=== PATIENT | female | born 1945 | race Caucasian/White ===

== ENCOUNTER 2016-08-05 09:33 | Emergency (ER) | payer MEDICARE, OTHER ==
[2014-08-18 10:07] VITALS: BMI 21.8
[~2016-08-05 09:33] MED LIST: BRILINTA90 MG PO; CATAPRES0.1 MG PO; DECADRON4 MG PO; DILAUDID8 MG OR; DILAUDID8 MG PO; IMDUR30 MG PO; LEVAQUIN750 MG PO; LIVALO1 MG PO; LOPRESSOR25 MG PO; LOPRESSOR50 MG PO; NORCO 5/325 TAB1 TA1 PO; NORVASC10 MG PO; PERCOCET 10/3251 TA1 PO; PHENERGAN25 M1 PO; PROTONIX40 MG PO; ROBAXIN-750750 MG PO; VITAMIN B-121000 MC3 PO
== END 2016-08-05 14:50 | disposition home or self-care (01) ==
LOC: D.ER 09:33
DX: G89.29 Other chronic pain (principal); M54.16 Radiculopathy, lumbar region; I25.810 Atherosclerosis of coronary artery bypass graft(s) without angina pectoris; J44.9 Chronic obstructive pulmonary disease, unspecified; F32.9 Major depressive disorder, single episode, unspecified; K21.9 Gastro-esophageal reflux disease without esophagitis; I73.9 Peripheral vascular disease, unspecified

== ENCOUNTER → 2016-09-26 10:26 | Outpatient (CLI) | payer MEDICARE, OTHER ==
[2014-08-18 10:07] VITALS: BMI 21.8
== END | disposition home or self-care (01) ==
LOC: D.CT 10:26
DX: I73.9 Peripheral vascular disease, unspecified (principal)

== ENCOUNTER → 2016-10-14 09:08 | Outpatient (CLI) | payer MEDICARE, OTHER ==
[2014-08-18 10:07] VITALS: BMI 21.8
[2016-10-14 10:49] LABS: ALBUMIN 3.7 g/dL (3.4-5.0); ALKALINE PHOSPHATASE 122 U/L (46-116); ALT (SGPT) 20 U/L (10-68); BILIRUBIN - TOTAL 0.34 mg/dL (0.2-1.3); CALC OSMOLALITY 282 mosm/kg (275-300); CALCIUM 8.8 mg/dL (8.5-10.1); CARBON DIOXIDE 31.7 mmol/L (21.0-32.0); CHLORIDE - SERUM 103 mmol/L (98-107); CREATININE - SERUM 0.7 mg/dL (0.6-1.3); GLUCOSE 108 mg/dL (74-106); POTASSIUM - SERUM 4.7 mmol/L (3.5-5.1); PROTEIN - SERUM 7.1 g/dL (6.4-8.2); SODIUM 142 mmol/L (136-145); UREA NITROGEN 10 mg/dL (7-18); eGFR NON AFRICAN AMERICAN 88 mL/min (90-120)
[2016-10-15 09:12] LABS: HEPATITIS C ANTIBODY <0.1 (0.0-0.9)
== END | disposition home or self-care (01) ==
LOC: D.LAB 10-06 08:30 → D.MRI 10-06 10:00 → D.LAB 09:08
PROVIDERS: Family Medicine
DX: R16.0 Hepatomegaly, not elsewhere classified (principal)

== ENCOUNTER 2017-06-28 09:24 | Emergency (ER) | payer MEDICARE, OTHER ==
[2014-08-18 10:07] VITALS: BMI 21.8
== END 2017-06-28 10:56 | disposition home or self-care (01) ==
LOC: D.ER 09:24
DX: M79.672 Pain in left foot (principal); S91.302A Unspecified open wound, left foot, initial encounter; X58.XXXA Exposure to other specified factors, initial encounter; Y93.89 Activity, other specified; Y92.89 Other specified places as the place of occurrence of the external cause; J44.9 Chronic obstructive pulmonary disease, unspecified; K21.9 Gastro-esophageal reflux disease without esophagitis; I25.10 Atherosclerotic heart disease of native coronary artery without angina pectoris

== ENCOUNTER → 2017-06-29 08:34 | Outpatient (CLI) | payer MEDICARE, OTHER ==
[2014-08-18 10:07] VITALS: BMI 21.8
[~2017-06-29 08:34] MED LIST changes: +ASPIRIN81 MG PO; +ELIQUIS2.5 MG PO; +HYDROCODONE-APA1 TAB PO; +K-TAB10 MEQ PO; +PLAVIX75 MG PO
== END | disposition home or self-care (01) ==
LOC: D.CT 06-28 08:47
DX: I73.9 Peripheral vascular disease, unspecified (principal); I70.219 Atherosclerosis of native arteries of extremities with intermittent claudication, unspecified extremity

== ENCOUNTER 2017-07-04 16:23 | Inpatient (IN) | payer MEDICARE, OTHER ==
[~2017-07-04] VITALS: Ht 149.9 cm; Wt 42.5 kg
--- NOTE | ~2017-07-04 | HEMODYNAMI ---
PATIENT:IRINA CARRERA MEDICAL RECORD: [id number] : 45 LOCATION:[place] [address] ADMISSION DATE: 07/04/17 Generatedon:07/07/201716:19 Patient name: IRINA CARRERA Patient #: [id number] SSN: : 1945 Date of study: 07/07/2017 Page: Of Hemodynamic Procedure Report Patient Data Patient Demographics Procedure consent was obtained First Name: IRINA Gender: Female Last Name: DEBI : 1945 Patient #: [id number] Age: 71 year(s) Race: Additional ID: [id number] Contact details [address]: [address] [place] [address] State: [place] City: [place] Zip code: [address] Past Medical History Allergies Allergen Reaction Date Comments Reported IV contrast dye 08/15/2014 NSAIDs 08/15/2014 Penicillins 08/15/2014 Morphine 08/15/2014 Other allergy 08/15/2014 PREDNISONE, ALPRAZOLAM, VALIUM, NSAIDS, CELEXA, CYMBALTA, NEVROTIN, ZOFRAN Admission Admission Data Admission Date: 07/04/2017 Admission Time: 16:23 Room #: [facility] Procedure Procedure Types Cath Procedure Peripheral Cath Diagnostic Procedure Miscellaneous Procedure Description Procedure Date Procedure Date: 07/07/2017 Procedure Start Time: 14:33 Procedure Staff Name Function Mat Ziegler RT Monitor Atif Markham MD Additional personnel Robel Chaney MD Performing Physician Valorie Rose RT Scrub Juana Ramirez RN Nurse Angie Lovelace RN Nurse Procedure Data Cath Procedure Fluoroscopy Diagnostic fluoroscopy Total fluoroscopy Time: 3.2 time: 3.2 min min Diagnostic fluoroscopy Total fluoroscopy dose: 110 dose: 110 mGy mGy Contrast Material Contrast Material Type Amount (ml) Isovue 300 78 Procedure Medications Medication Administration Route Dosage Solumedrol I.V. 125 mg Benadryl I.V. 50 mg Heparin Flush Bag added to field 3 (1000units/500ml NS) Lidocaine 1% added to field 20 Oxygen etCO2 Nasal cannula 4 l/min Heparin Bolus I.V. 5000 units Nitroglycerin IC/IA I.A. 200 Hemodynamics Rest Heart Rate: 69 (bpm) Snapshots Pre Cath Intra NCS Post Cath Vital Signs Time Heart Resp SPO2 etCO2 NIBP (mmHg) Rhythm Pain Sedation Rate (ipm) (%) (mmHg) Status Level (bpm) 14:23:31 80 2 31.8 Measuring NSR 0 (11) 10(A) , No pain 14:23:53 86 5 91 21.9 192/108(121) NSR 0 (11) 10(A) , No pain 14:28:20 80 15 100 25 192/101(149) NSR 0 (11) 10(A) , No pain 14:32:40 72 13 100 3 187/91(137) NSR 0 (11) 9(A) , No pain 14:37:06 64 16 100 10.6 174/81(136) NSR 0 (11) 9(A) , No pain 14:41:26 62 16 100 9.8 176/82(140) NSR 0 (11) 8(A) , No pain 14:45:48 62 16 100 14.3 182/79(138) NSR 0 (11) 8(A) , No pain 14:50:12 61 15 100 9.8 174/81(137) NSR 0 (11) 8(A) , No pain 14:54:35 61 15 100 12.1 171/78(132) NSR 0 (11) 8(A) , No pain 14:58:57 61 13 100 11.3 155/72(124) NSR 0 (11) 8(A) , No pain 15:03:15 62 15 100 11.3 135/69(106) NSR 0 (11) 8(A) , No pain 15:07:25 61 13 100 15.1 140/71(113) NSR 0 (11) 8(A) , No pain 15:11:37 61 13 100 15.9 133/69(105) NSR 0 (11) 8(A) , No pain 15:15:47 58 14 100 18.1 134/68(106) NSR 0 (11) 8(A) , No pain 15:19:59 57 15 100 15.9 134/64(104) NSR 0 (11) 8(A) , No pain 15:24:08 57 13 100 18.1 135/69(108) NSR 0 (11) 8(A) , No pain 15:28:29 63 12 100 16.6 74/43(53) NSR 0 (11) 8(A) , No pain 15:33:11 75 13 100 8.3 48/31(39) NSR 0 (11) 8(A) , No pain 15:34:27 70 20 100 19.6 56/32(41) NSR 0 (11) 8(A) , No pain 15:35:25 72 11 100 22.7 49/33(40) NSR 0 (11) 8(A) , No pain 15:36:28 74 15 100 13.6 67/42(53) NSR 0 (11) 8(A) , No pain 15:38:45 67 23 100 8.3 106/63(84) NSR 0 (11) 8(A) , No pain 15:41:58 63 14 100 13.6 69/42(57) NSR 0 (11) 8(A) , No pain 15:44:00 70 14 100 13.6 68/46(57) NSR 0 (11) 8(A) , No pain 15:45:12 73 100 0 85/54(67) NSR 0 (11) 8(A) , No pain 15:48:16 81 24 100 11.3 83/50(71) NSR 0 (11) 8(A) , No pain 15:52:18 89 17 100 0 83/52(62) NSR 0 (11) 8(A) , No pain 15:56:16 91 14 100 21.2 102/55(83) NSR 0 (11) 8(A) , No pain 16:00:18 95 17 100 16.6 80/59(73) NSR 0 (11) 8(A) , No pain 16:01:58 96 15 100 0 66/42(52) NSR 0 (11) 8(A) , No pain 16:05:52 97 21 100 0 79/53(71) NSR 0 (11) 8(A) , No pain 16:09:51 107 16 0 101/50(66) NSR 0 (11) 8(A) , No pain 16:14:46 0 Out of range NSR 0 (11) 8(A) , No pain 16:18:45 0 No Cuff NSR 0 (11) 8(A) , No pain Medications Time Medication Route Dose Verified Delivered Reason Notes Effec tiveness by by 14:36:12 Solumedrol I.V. 125 Robel Adams per drug mg Radu Chaney RN protocol 14:36:27 Benadryl I.V. 50 mg Robel Ramirezine per drug Radu Chaney RN protocol 14:37:59 Heparin Flush added 3 Robel Robel Per Bag to BAGS Shiv Chaney MD protocol (1000units/500ml field NS) 14:38:13 Lidocaine 1% added 20ml Robel Roble Per to vial Shiv Chaney MD protocol field 14:38:38 Oxygen etCO2 4 Robel Angie Per Nasal l/min Radu Chaney RN protocol cannula 14:53:21 Heparin Bolus I.V. 5000 Robel Juana units James Chaney RN, MD 14:58:46 Nitroglycerin I.A. 200 Robel Robel IC/IA MCG Shiv Chaney MD MD Procedure Log Time Note 13:55:14 Atif Markham MD present and monitoring patient for TIVA. 13:55:58 Mat Ziegler RT (R) (CV) sent for patient. Start room use. 13:56:13 Time tracking: Regular hours (M-F 7:00 - 5:00) 13:56:19 Plan of Care:Hemodynamics will remain stable., Cardiac rhythm will remain stable., Comfort level will be maintained., Respiratory function will remain adequate., Patient/ family verbilizes understanding of procedure., Procedure tolerated without complication., Recovers from procedure without complications.. 13:56:25 Patient received from CVICU to IR Alert and oriented. Tansferred to table in Supine position. 13:56:26 Correct patient and procedure confirmed by team. 13:56:34 Warm blankets applied, and lucho hugger turned on for patient comfort. 13:56:38 Signed procedure consent form obtained from patient. 13:56:39 Full Disclosure recording started 13:56:42 - 13:56:47 H&P Date Dictated: 07/07/2017 Within 30 days and on chart.. 13:56:48 Pre-procedure instructions explained to patient. 13:56:49 Pre-op teaching completed and patient verbalized understanding. 13:56:51 - 13:57:11 SEE ANESTHESIA NOTE FOR PREPROCEDURE TIVA 13:57:12 - 13:57:16 Use device set IR Diagnostic 13:57:23 ACIST Manifold (11439) opened to sterile field. 13:57:23 ACIST Hand Control (32647) opened to sterile field. 13:57:23 ACIST Syringe (72561) opened to sterile field. 13:57:24 Sterile Angiographic Pack opened to sterile field. 13:57:24 Bag Decanter (2002S) opened to sterile field. 13:57:25 Tegaderm 4 x 4 (1626W) opened to sterile field. 14:15:46 Alarms reviewed by R. N. 14:15:47 Sharps counted by scrub and verified by R.N. 14:16:10 Left groin area was prepped with chlora-prep and draped in sterile fashion 14:21:41 Vital chart was started 14:26:27 Baseline sample Acquired. 14:31:47 Physician arrived 14:31:48 Final Timeout: patient, procedure, and site verified with staff and physician. All members of the team are in agreement. 14:31:48 --------ALL STOP TIME OUT------ 14:31:51 Left groin site verified by team. 14:31:57 Sedation plan: TIVA Medication:Propofol 14:33:35 Procedure started. 14:33:47 Local anesthetic to left femerol artery with Lidocaine 1% by Robel Chaney MD.INITIAL ACCESS ONLY 14:36:12 Solumedrol 125 mg I.V. was administered by Angie Lovelace RN; per kamilah g protocol; 14:36:17 Tompkins 260 wire (L37747) opened to sterile field. 14:36:27 Benadryl 50 mg I.V. was administered by Angie Lovelace RN; per drug protocol; 14:37:59 Heparin Flush Bag (1000units/500ml NS) 3 BAGS added to field was administered by Robel Chaney MD; Per protocol; 14:38:13 Lidocaine 1% 20ml vial added to field was administered by Robel Chaney MD; Per protocol; 14:38:38 Oxygen 4 l/min etCO2 Nasal cannula was administered by Angie Lovelace RN; Per protocol; 14:52:16 INFLATOR Merit BasixCompak (TR7846) opened to sterile field. 14:52:56 Inflate balloon Inflation number: 1 A CHOCOLATE 3.0 x 120 x 150 balloon ([id number]) was prepped and advanced across the Undefined1, then inflated 14:53:21 Heparin Bolus 5000 units I.V. was administered by Juana Ramirez RN; ; 14:53:27 CHOICE PT Extra Support J 300cm guide wire ([id number]) opened to steril e field. 14:53:29 CXI Catheter 90cm (S98814) opened to sterile field. 14:58:46 Nitroglycerin IC/IA 200 MCG I.A. was administered by Robel Chaney MD; ; 15:15:01 EXOSEAL 5Fr (EX500) opened to sterile field. 15:18:57 TOMPKINS 80cm wire (M02929) opened to sterile field. 15:23:07 Procedure ended.(Physican Out) 15:23:50 Fluoroscopy time 03.20 minutes. 15:24:01 Fluoroscopy dose: 110 mGy 15:24:01 Flurop Dose total: 110 15:24:09 Contrast amount:Isovue 300 78ml. 15:24:12 Procedure and supply charges have been captured, reviewed, submitted an d are correct. 15:27:18 Report given to CVICU. 15:29:58 Post Procedure Pulses reassessed and unchanged 15:30:53 Vital chart was stopped 15:30:56 Full Disclosure recording stopped 15:50:31 Vital chart was started 16:19:12 Vital chart was stopped Intervention Summary Intervention Notes Time ActionType Lesion and Equipment Used Action# Pressure Duration Attributes 14:52:56 Inflate Undefined1 CHOCOLATE 3.0 x 1 0 00:00 balloon 120 x 150 balloon ([id number]) Device Usage Item Name Manufacture Quantity Catalog Number Hospital Part Current Minimal Lot# / Charge Number Stock Stock Serial# Code ACIST Syringe Acist 1 80381 375298 [id number] [id number] 20 (79861) [employer] ACIST Hand Acist 1 62688 148593 529121 185252 5 Control (67103) [employer] ACIST Manifold Acist 1 75941 796604 964400 936821 5 (70739) [employer] Bag Decanter Microtek 1 2002S 854696 05972 009474 5 (2002S) Medical Inc. Sterile Cardinal 1 [id number] 091293 423292 5 Angiographic Pack Health Tegaderm 4 x 4 3M 1 1626W 567125 345733 217439 5 (1626W) Tompkins 260 wire [employer] 1 M07389 443248 076922 612151 5 (N11188) INFLATOR Merit Merit 1 DD8568 591522 693969 944219 15 [facility] (MA5425) CHOCOLATE 3.0 x Cardinal 1 [id number] 396755 227532 959376 5 120 x 150 balloon Health O ([id number]) TW CHOICE PT Extra Ponce 1 [id number] 239183 850732 620916 5 Support J 300cm Scientific guide wire ([id number]) CXI Catheter 90cm [employer] 1 A35879 018487 131324 583478 5 (J88956) EXOSEAL 5Fr Cardinal 1 EX500 307283 995876 581422 10 [id number] (EX500) Health TOMPKINS 80cm wire [employer] 1 L98790 853741 175103 5 [id number] ([id number]) Signature Audit [place] Stage Time Signature Unsigned Intra-Procedure 07/07/2017 Mat Ziegler RT 3:30:50 PM Barbraield RT (R) (CV) 07/07/2017 (R) (CV) 3:31:56 PM Intra-Procedure 07/07/2017 Mat 4:19:09 PM Barbraield RT (R) (CV) Signatures Monitor : Mat Signature : Karlie RT Date : Time : [place] [address] [place] [address]
--- NOTE | ~2017-07-04 | HP ---
PATIENT: IRINA CARRERA MEDICAL RECORD: [id number] ACCOUNT: [id number] LOCATION:[address] : 45 ADMISSION DATE: 07/04/17 HISTORY AND PHYSICAL EXAMINATION IRINA Morales (71yo, F) ID# [id number]. Date/Time07/04/2017 01:39PBLQL12[facility]_[place] [facility] ClinicProviPutnam General HospitalEZIO ORTIZ MDInsuranceMed Primary: [place] Insurance # : [id number] Referring Provider Name : KALPANA INMAN Employer Name : RETIRED Med Secondary: GEHA (PPO) Insurance # : [id number] Policy/Group # : [id number] Employer Name : RETIRED Prescription: CMX - Member is eligible. Chief Complaint Followup: Peripheral vascular disease s/p L groin exploration; thrombectomy of L limb of ABF; bilateral chest tubes 08/18/14 now new referral for PAD, CTA 06/29/17 at [facility] Patient's Care Team Referring Provider (): KALPANA INMAN: [address], [place] [address], , Referring Provider: DENIS PAINTING MD: [address] [place] [id number], , Primary Care Provider: LIONEL PORRAS: [address] [place] [address], , Personnel Adviser: MACHO DUEÑAS MD Patient's Pharmacies [facility] (ERX): [address] [facility] [address], , Vitals BP:126/66 sitting L arm 07/04/2017 02:00 pmBP Cuff Size:adult 07/04/2017 02:00 pmHR:88,reg 07/04/2017 02:00 pmHt:4 ft 11 in 07/04/2017 02:00 pmNotes:had ingrown toenail about a month or six weeks ago, then developed staph in her toe wound. Was in [facility] five days for this, and then went to wound clinic, who sent her to Dr Dueñas.07/04/2017 02:02 pmAllergies Reviewed Allergies CELEBREX: GI bleedCELEXACYMBALTAIODINATED CONTRAST- ORAL AND IV DYE: ItchingMORPHINE: ItchingNEURONTINNSAIDS (NON-STEROIDAL ANTI-INFLAMMATORY DRUG)PENICILLINS: ItchingPRAVASTATIN: Myalgias (muscle pain)PREDNISOLONE: SeizureVALIUMXANAX: NauseaZOFRAN: VomitingMedications Reviewed Medications acetaminophen 300 mg-codeine 30 mg mdiuiy87/27/18 filledCaremarkamitriptyline 25 mg /16/18 filledCaremarkamitriptyline 50 mg pqolep27/06/18 filledCaremarkamLODIPine 10 mg yuomfp87/06/17 filledCaremarkAspir-81 DAILY07/03/17 enteredErika Watkinsatorvastatin 40 mg zycrsi24/02/13 filledMEDCOclindamycin HCl 150 mg /25/18 filledCaremarkclindamycin HCl 300 mg srybbko97/13/18 filledCaremarkcloNIDine HCl 0.1 mg tablet BID08/13/14 filledCaremarkdiphenoxylate-atropine 2.5 mg-0.025 mg /23/17 filledCaremarkgabapentin 300 mg xwlpkyf89/07/17 filledCaremarkHYDROcodone 5 mg-acetaminophen 325 mg /17/17 filledCaremarkHYDROcodone 7.5 mg-acetaminophen 325 mg zredzl59/07/18 filledCaremarkmeperidine 50 mg ftpecv84/13/18 filledCaremarknitroglycerin 0.[address] 1 tablet(s) by sublingual route. HISTORY AND PHYSICAL [id number] IRINA CARRERA Internal Note: PRN07/03/17 enteredErika WatkinsoxyCODONE-acetaminophen 7.5 mg-325 mg fqcyox92/23/17 filledCaremarkOxyCONTIN 10 mg tablet,crush resistant,extended jnolzoh52/10/17 filledCaremarkOxyCONTIN 15 mg tablet,crush resistant,extended gromcbv11/08/17 filledCaremarkOxyCONTIN 20 mg tablet,crush resistant,extended release TK 1 T PO Q 12 HOURS05/19/17 filledCaremarkPlavix 75 mg tablet Take 1 tablet(s) every day by oral route.07/03/17 enteredErika WatkinsRobaxin-750 750 mg tablet Take 1 tablet(s) 4 times a day by oral route.07/03/17 enteredErika WatkinstraMADol 50 mg qyulip41/22/18 filledCaremarkProblems Reviewed Problems Limb pain at rest due to atherosclerosis of [place] artery - Onset: 07/04/2017 History of depression Gastroesophageal reflux disease Chest pain Peripheral vascular disease Aneurysm - right groin Coronary atherosclerosis Essential hypertension Family History Reviewed Family History Mother- Coronary arteriosclerosisFather- Coronary arteriosclerosisSocial History Reviewed Social History Cardiology Family history of heart disease?: Y Smoking Status: Former smoker (Notes: QUIT 1 MONTH AGO) High Cholesterol: Y High blood pressure: Y Diabetes: N Surgical History Reviewed Surgical History Laparoscopic cholecystectomy Appendectomy Tonsillectomy Other - 07/10/2013 - lliotibal band lenthen Other - 2013 - fracture tailbone Other - 2008 - aortobifemoral bypass SMALL BOWEL RESECTION 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 HPI Peripheral Vascular Disease Reported by patient. Location: foot Quality: aching Severity: severe Duration: started 6weeks ago Onset/Timing: continuous; at night; wakes from sleep Context: during walking; at rest Alleviating Factors: rest; elevation Aggravating Factors: walking; sleeping; standing Associated Symptoms: no weakness; no numbness; no paresthesias; no fever; skin discoloration Notes: pt states wound continues to grow staph, no records from wound clinic yet severe peripheral vascular disease Continues to smoke cigarettes Rest pain left lower extremity nonhealing ulcer ROS Patient reports exercise intolerance (wheelchair-bound due to pain in left foot) but reports no fever, no night sweats, no significant weight gain, and no significant weight loss. She reports shortness of breath when lying down but reports no chest pain, no arm pain on exertion, no shortness of breath when walking, no palpitations, and no known heart murmur. She reports muscle weakness, arthralgias/joint pain, and back pain but reports no muscle aches and no swelling in the extremities. She reports no abnormal mole, no jaundice, and no rashes; nonhealing ulcer left great. She reports no loss of consciousness, no weakness, no numbness, no seizures, no dizziness, and no headaches; rest pain left lower extremity. She reports no dry eyes, no irrita tion, and no vision change. She reports no difficulty hearing and no ear pain. She reports no frequent nosebleeds and no nose/sinus problems. She reports no sore throat, no bleeding gums, no snoring, no dry mouth, no mouth ulcers, no oral abnormalities, a n d no teeth problems. She reports no cough, no wheezing, no shortness of breath, and no coughing up blood. She reports no abdominal pain, no vomiting, normal appetite, no diarrhea, not vomiting blood, no nausea, and no constipation. She reports no incontin e nce, no difficulty urinating, no hematuria, and no increased frequency. She reports no depression, no sleep disturbances, feeling safe in relationship, and no alcohol abuse. She reports no fatigue. She reports no swollen glands and no bruising. She report s no runny nose, no sinus pressure, no itching, no hives, and no frequent sneezing. ROS as noted in the HPI Physical Exam Patient is a 71-year-old female. Constitutional: General Appearance cachectic. Level of Distress chronically ill. Ambulation in wheelchair. Ears, Nose, Throat: Ears grossly normal hearing. Nose no external nose lesion. Lips, Teeth, and Gums no mouth or lip ulcers. Oropharynx: moist mucous membranes. HISTORY AND PHYSICAL [id number] IRINA CARRERA Cardiovascular: Apical Impulse not displaced or no thrill. Heart Auscultation normal s 1 and s2; no murmurs, rubs, or gallops; and RRR. Arterial Pulses no abdominal aorta bruits, femoral bruits, or popliteal bruits and 2+ bilateral, carotid 2+ bilateral, femoral 2+ bilateral, popliteal 2+ bilateral, and dorsalis pedis diminished (B). Edema no edema and varicosities. Lungs: Repiratory Effort no dyspnea. Percussion no hyperresonance or dullness or flatness. Auscultation no wheezing, rhonchi, or rales / crackles and breathing sounds normal, good air movement, and CTA except as noted. Abdomen: Bowl Sounds normal. Inspection and Palpation no tenderness, guarding, masses, or rebound tenderness and soft and non-distended. Liver non-tender and no hepatomegaly. Spleen non-tender and no splenomegaly. Hernia none palpable. Musculoskeletal System: Gait And Stance wwheelchair. Digits and Nails normal nails, no cyanosis, and abnormal nails; missing nail left great toe. Joints, Bones, and Muscles limited ROM. Neurologic: Cranial Nerves grossly intact. Reflexes asymmetric. Sensation grossly intact. Lymph Nodes: Lymph Nodes no cervical LAD, supraclavicular LAD, axillary LAD, or inguinal LAD. Eyes: Lids and Conjunctivae no discharge or pallor and non-injected. Pupils PERRLA. Cornea grossly intact. EOM EOMI. Lens clear. Sclera non-icteric. Neck: Neck no masses, enlarged lymph nodes, or carotid bruits and supple and trachea midline. Thyroid no enlargement or nodules and non-tender. Skin: Inspection and Palpation no rash, lesions, ulcers, jaundice, or abnormal nevi. Assessment / Plan rest pain left lower extremity need to chronic total occlusion of the left superficial femoral artery and intra-geniculate disease 1. Limb pain at rest due to atherosclerosis of [place] artery I70.222: Atherosclerosis of [place] arteries of extremities with rest pain, left leg 2. Peripheral vascular disease I73.9: Peripheral vascular disease, unspecified PERIPHERAL ARTERIAL DISEASE OF THE LEG: CARE INSTRUCTIONS Discussion Notes plan admission hospital for pain control and further workup Plan arteriogram left lower extremity Will attempt to salvage foot she may require an amputation Plan to consult Dr. Jaimes Consults interventional radiology HISTORY AND PHYSICAL [id number] IRINA CARRERA EDWARD MD at 0809 CC: [id number] DICTATION DATE: 07/04/17 1300 CLERK MANAGER: AJAY 07/04/172008 ADM IN [facility] [address] [place] [address]
--- NOTE | ~2017-07-04 | HEMODYNAMI ---
PATIENT:IRINA CARRERA MEDICAL RECORD: [id number] : 45 LOCATION:[place] [address] ADMISSION DATE: 07/04/17 Generatedon:07/06/201715:37 Patient name: IRINA CARRERA Patient #: [id number] SSN: : 1945 Date of study: 07/06/2017 Page: Of Hemodynamic Procedure Report Patient Data Patient Demographics Procedure consent was obtained First Name: IRINA Gender: Female Last Name: DEBI : 1945 Patient #: [id number] Age: 71 year(s) Race: Additional ID: [id number] Contact details [address]: [address] [place] [address] State: [place] City: [place] Zip code: [address] Past Medical History Allergies Allergen Reaction Date Comments Reported IV contrast dye 08/15/2014 NSAIDs 08/15/2014 Penicillins 08/15/2014 Morphine 08/15/2014 Other allergy 08/15/2014 PREDNISONE, ALPRAZOLAM, VALIUM, NSAIDS, CELEXA, CYMBALTA, NEVROTIN, ZOFRAN Admission Admission Data Admission Date: 07/04/2017 Admission Time: 16:23 Room #: [facility] Procedure Procedure Types Cath Procedure Peripheral Cath Diagnostic Procedure Abd/Extremity Extremities Left Lower Ext Arterio Procedure Description Procedure Date Procedure Date: 07/06/2017 Procedure Start Time: 13:31 Procedure Staff Name Function Mat Karlie RT Monitor Valorie Rose RT Scrub Angie Lovelace RN Nurse Juana Ramirez RN Nurse Prakash Turcios CRNA Additional personnel Billy Licea MD Performing Physician Procedure Data Cath Procedure Fluoroscopy Diagnostic fluoroscopy Total fluoroscopy Time: time: 15.9 min 15.9 min Diagnostic fluoroscopy Total fluoroscopy dose: 154 dose: 154 mGy mGy Contrast Material Contrast Material Type Amount (ml) Isovue 300 50 Diagnostic catheters Device Type Used For End Catheter Placement Merit Impress KA 2 5Fr 40CM catheter ([id number]) Procedure Medications Medication Administration Route Dosage Heparin Flush Bag added to field 2 bags (1000units/500ml NS) Lidocaine 1% added to field 20 Oxygen etCO2 Nasal cannula 4 l/min Heparin Bolus I.V. 4000 units unlisted medication I.C. 2 mg 0.9% NaCl I.V. 30 ml/hr Activase(12.5mg/250 I.A. 20 ml/hr NS) Heparin Drip I.V. drip 500 units/hr (35475rfmmw/250 D5W) Hemodynamics Rest Heart Rate: 90 (bpm) Snapshots Pre Cath Intra NCS Post Cath Vital Signs Time Heart Resp SPO2 etCO2 NIBP (mmHg) Rhythm Pain Sedation Rate (ipm) (%) (mmHg) Status Level (bpm) 13:17:39 11 96 34.1 174/90(96) NSR 0 (11) 10(A) , No pain 13:21:59 93 17 100 9.8 161/90(122) NSR 0 (11) 10(A) , No pain 13:26:17 80 21 100 19.7 142/75(105) NSR 0 (11) 7(A) , No pain 13:30:30 79 18 100 18.2 142/77(111) NSR 0 (11) 7(A) , No pain 13:34:40 79 13 100 17.4 150/80(119) NSR 0 (11) 7(A) , No pain 13:38:53 75 17 100 12.1 143/75(108) NSR 0 (11) 7(A) , No pain 13:43:03 74 15 100 15.1 139/74(108) NSR 0 (11) 7(A) , No pain 13:47:13 73 18 100 9.1 137/71(108) NSR 0 (11) 7(A) , No pain 13:51:23 72 14 100 12.8 134/70(106) NSR 0 (11) 7(A) , No pain 13:55:33 71 13 100 15.1 131/68(101) NSR 0 (11) 7(A) , No pain 13:59:41 72 16 100 27.3 132/70(103) NSR 0 (11) 7(A) , No pain 14:03:51 73 22 100 4.5 122/66(94) NSR 0 (11) 7(A) , No pain 14:08:00 74 15 100 19.7 109/56(82) NSR 0 (11) 7(A) , No pain 14:12:04 78 17 100 19.7 104/58(80) NSR 0 (11) 7(A) , No pain 14:16:08 75 17 100 18.1 106/58(80) NSR 0 (11) 7(A) , No pain 14:20:12 73 15 100 14.4 112/59(88) NSR 0 (11) 7(A) , No pain 14:24:17 72 16 100 12.9 112/58(86) NSR 0 (11) 7(A) , No pain 14:28:23 71 13 100 14.4 116/59(87) NSR 0 (11) 7(A) , No pain 14:32:29 71 20 100 23.5 118/62(90) NSR 0 (11) 7(A) , No pain 14:36:37 71 17 100 20.4 114/59(89) NSR 0 (11) 7(A) , No pain 14:40:41 71 16 100 20.4 122/65(95) NSR 0 (11) 7(A) , No pain 14:44:46 71 17 100 19.7 123/65(94) NSR 0 (11) 7(A) , No pain 14:48:52 71 18 100 19.7 130/66(101) NSR 0 (11) 10(A) , No pain 14:53:04 80 16 100 23.4 134/61(92) NSR 0 (11) 7(A) , No pain 14:57:14 80 21 100 21.9 115/71(99) NSR 0 (11) 7(A) , No pain 15:01:16 81 12 100 28 129/80(121) NSR 0 (11) 7(A) , No pain 15:05:28 85 12 14.4 141/118(138) NSR 0 (11) 7(A) , No pain 15:10:27 82 14 25.7 Measuring NSR 0 (11) 7(A) , No pain 15:11:12 77 14 21.2 Disturbed NSR 0 (11) 7(A) , No pain 15:15:11 0 No Cuff NSR 0 (11) 10(A) , No pain 15:19:11 0 No Cuff NSR 0 (11) 10(A) , No pain 15:23:11 0 No Cuff NSR 0 (11) 10(A) , No pain Medications Time Medication Route Dose Verified Delivered Reason Notes Effectiveness by by 13:34:30 Heparin Flush Bag added 2 bags M J Long Angie Per (1000units/500ml to MD Lovelace RN protocol NS) field 13:34:43 Lidocaine 1% added 20ml M J Long Angie Per to vial MD Lovelace RN protocol field 13:35:05 Oxygen etCO2 4 l/min M J Long Angie Per Nasal MD Lovelace RN protocol cannula 14:04:22 Heparin Bolus I.V. 4000 M J Long Angie Per units MD Lovelace RN physician 14:30:25 ACTIVASE I.C. 2 mg M J Long Angie Per MD Lovelace RN protocol 15:06:19 0.9% NaCl I.V. 30 ml/hr M J Long Angie Per MD Lovelace RN protocol 15:35:14 Activase(12.5mg/250 I.A. 20 ml/hr M J Long Angie per drug NS) MD Lovelace RN protocol 15:35:37 Heparin Drip I.V. 500 M J Long Angie Per (72817kbgrm/250 drip units/hr MD Lovelace RN protocol D5W) Procedure Log Time Note 12:58:42 Mat Ziegler RT (R) (CV) sent for patient. Start room use. 12:58:51 Time tracking: Regular hours (M-F 7:00 - 5:00) 12:58:56 Plan of Care:Hemodynamics will remain stable., Cardiac rhythm will remain stable., Comfort level will be maintained., Respiratory function will remain adequate., Patient/ family verbilizes understanding of procedure., Procedure tolerated without complication., Recovers from procedure without complications.. 12:59:04 Patient received from Med II to IR Alert and oriented. Tansferred to table in Supine position. 12:59:07 Correct patient and procedure confirmed by team. 12:59:09 Signed procedure consent form obtained from patient. 12:59:10 ECG and BP/O2 sat monitors applied to patient. 12:59:11 - 12:59:26 SEE ANESTHESIA NOTE FOR PRE PROCEDURE TIVA 12:59:34 Use device set IR Diagnostic 12:59:36 Bag Decanter (2002S) opened to sterile field. 12:59:37 Sterile Angiographic Pack opened to sterile field. 12:59:38 Tegaderm 4 x 4 (1626W) opened to sterile field. 13:12:25 Prakash Turcios CRNA present and monitoring patient for TIVA. 13:12:48 Left groin area was prepped with chlora-prep and draped in sterile fashion 13:12:55 Sharps counted by scrub and verified by R.N. 13:12:58 Alarms reviewed by R. N. 13:16:23 Vital chart was started 13:22:45 Baseline sample Acquired. 13:30:54 H&P Date Dictated: 07/06/2017 Within 30 days and on chart.. 13:31:01 Physician arrived 13:31:01 --------ALL STOP TIME OUT------ 13:31:02 Final Timeout: patient, procedure, and site verified with staff and physician. All members of the team are in agreement. 13:31:05 Left groin site verified by team. 13:31:10 Sedation plan: TIVA Medication:Propofol 13:31:30 Procedure started. 13:31:30 Full Disclosure recording started 13:31:56 Local anesthetic to left femerol artery with Lidocaine 1% by Billy Licea MD.INITIAL ACCESS ONLY 13:32:13 SHEATH 5FR [place] (CNP075) opened to sterile field. 13:32:14 DOC .035 wire (Z29267) opened to sterile field. 13:32:15 Micropuncture VSI 4FR kit opened to sterile field. 13:34:30 Heparin Flush Bag (1000units/500ml NS) 2 bags added to field was administered by Angie Lovelace RN; Per protocol; 13:34:43 Lidocaine 1% 20ml vial added to field was administered by Angie Lovelace RN; Per protocol; 13:35:05 Oxygen 4 l/min etCO2 Nasal cannula was administered by Angie Lovelace RN; Per protocol; 13:45:10 Cordis 5Fr BRITE TIP 11cm sheath opened to sterile field. 13:49:23 GLIDE CATHETER 5FR STRAIGHT 65cm (CG505) opened to sterile field. 13:49:23 ROADRUNNER .035 145 glide wire (U69985) opened to sterile field. 13:50:58 A Merit Impress KA 2 5Fr 40CM catheter (04545KR6) was advanced over the wire and used for . 13:57:03 GLIDE CATHETER 5FR ANGLED 65cm (CG507) opened to sterile field. 13:57:04 ROADRUNNER .035 260 glide wire (M27553) opened to sterile field. 14:03:45 INFLATOR BasixTOUCH (RU8114) opened to sterile field. 14:03:46 CHOICE PT Extra Support J 300cm guide wire ([id number]) opened to steril e field. 14:04:22 Heparin Bolus 4000 units I.V. was administered by Angie Lovelace RN; Per physician; 14:04:57 Inflate balloon Inflation number: 1 A [place] Plus 2 x 4 x 130 Balloon ([id number]) was prepped and advanced across the Undefined1, then inflated 14:20:05 INFUSION CATHETER 50cm [facility] (6384190) opened to sterile field . 14:30:25 ACTIVASE 2 mg I.C. was administered by Angie Lovelace RN; Per protocol; 14:37:08 SUTURE ETHILON 2-0 BLK MONO FS opened to sterile field. 14:37:22 Tegaderm 6 x 8 (1628) opened to sterile field. 14:37:23 Tegaderm 6 x 8 (1628) opened to sterile field. 14:38:09 SHEATH SUTURED IN WITH 2.0 ETHILON 14:40:15 Procedure ended.(Physican Out) 14:40:49 Fluoroscopy time 15.90 minutes. 14:40:52 Fluoroscopy dose: 154 mGy 14:40:52 Flurop Dose total: 154 14:40:54 Sharps counted by scrub and verified by R.N. 14:41:52 Post-op/insertion site Left Femoral artery dressed using a 4 x 4 and Tegaderm. 15:06:19 0.9% NaCl 30 ml/hr I.V. was administered by Angie Lovelace RN; Per protocol; 15:16:39 Contrast amount:Isovue 300 50ml. 15:23:28 Vital chart was stopped 15:35:14 Activase(12.5mg/250 NS) 20 ml/hr I.A. was administered by Angie Lovelace RN; per drug protocol; 15:35:37 Heparin Drip (48672dkapj/250 D5W) 500 units/hr I.V. drip was administered by Angie Lovelace RN; Per protocol; 15:36:34 SEE ANESTHISA NOTE FOR POST PROCEDURE TIVA 15:36:38 Report given to CVICU. 15:36:42 Patient transfered to CVICU with Bed. Intervention Summary Intervention Notes Time ActionType Lesion and Equipment Used Action# Pressure Duration Attributes 14:04:57 Inflate Undefined1 [place] Plus 2 1 0 00:00 balloon x 4 x 130 Balloon ([id number]) Device Usage Item Name Manufacture Quantity Catalog Number Hospital Part Current [facility] Lot# / Charge Number Stock Stock Serial# Code Bag Decanter Microtek 1 [id number] 15089 [id number] 5 () [employer] Inc[employer] Sterile Cardinal 1 [id number] 930222 886303 5 Angiographic Health Pack Tegaderm 4 x 4 3M 1 1626W 003447 238873 767162 5 (1626W) SHEATH 5FR Terumo 1 GKY889 808047 728449 259164 40 [place] (KKZ121) DOC .035 wire [facility] 1 Z90278 849591 011204 5 3371775 (Q67757) Micropuncture VSI VASCULAR 1 7266V 308406 960965 5 VSI 4FR kit SOLUTIONS Cordis 5Fr Cardinal 1 [id number] 463993 673809 5 BRITE TIP 11cm Health sheath GLIDE CATHETER Terumo 1 CG505 665330 618416 5 5FR STRAIGHT 65[facility] (CG505) [facility] U39[facility] 652902 042025 976821 5 2799630 .035 145 glide wire (B31388) Merit Impress Merit 1 23217IN8 236737 347195 5 KA 2 5Fr 40CM Medical catheter (05438AD1) GLIDE CATHETER Terumo 1 CG507 290360 503456 5 5FR ANGLED 65cm (CG507) [facility] 1 A01869 747015 111092 017624 5 2149750 .035 260 glide wire (Z04685) INFLATOR Merit 1 FJ6828 287172 912789 897453 5 [employer] Medical (FA4158) CHOICE PT [place] 1 [id number] 765222 763922 067201 5 [id number] Extra Support Scientific J 300cm guide wire ([id number]) [place] Plus 2 Medtronic 1 [id number] 875562 822950 935614 5 x 4 x 130 Balloon ([id number]) INFUSION Medtronic 1 42184-55 565884 843951 5 CATHETER 50cm Vianca (4738656) SUTURE ETHILON Ethicon 1 664H 670332 924664 5 2-0 BLK MONO FS Tegaderm 6 x 8 3M 2 1628 915571 747895 5 (6170) Signature Audit [place] Stage Time Signature Unsigned Intra-Procedure 07/06/2017 Mat 3:37:06 PM Karlie RT (R) (CV) Signatures Monitor : Mat Signature : Karlie RT Date : Time : [facility] [address] [place] [address]
[~2017-07-04 16:23] MED LIST changes: -ASPIRIN81 MG PO; -ELIQUIS2.5 MG PO; -HYDROCODONE-APA1 TAB PO; -K-TAB10 MEQ PO; -PLAVIX75 MG PO
[2017-07-04 18:00] VITALS: BP 136/65
[2017-07-04 18:55] VITALS: BP 136/65; BMI 19.1
[2017-07-04 21:03] VITALS: BP 130/75
[2017-07-05 01:23] VITALS: BP 104/54
[2017-07-05 05:29] VITALS: BP 125/57
[2017-07-05 05:56] LABS: BASOPHILS 0.3 % (0-2); HEMATOCRIT 37.7 % (36.0-48.0); HEMOGLOBIN 12.6 g/dL (12-16); IMMATURE GRANULOCYTES 0.3 % (0-5); LYMPHOCYTES 45.7 % (15-50); MCH 32.5 pg (26.0-34.0); MCHC 33.4 g/dL (31.0-37.0); MCV 97.2 fL (80.0-100.0); MEAN PLATELET VOLUME 9.2 fL (7.4-10.4); MONOCYTES 6.9 % (2-11); NEUTROPHILS 43.8 % (40-80); RBC 3.88 10x6/uL (4.00-5.40); RDW 15.9 % (11.5-14.5); WBC 7.4 10x3/uL (4.8-10.8)
[2017-07-05 06:01] LABS: PLATELET COUNT 348 10x3/uL (130-400)
[2017-07-05 06:05] LABS: INR 0.98 (0.85-1.17); PROTIME 12.6 SECONDS (11.6-15.0)
[2017-07-05 06:06] LABS: APTT 30.8 SECONDS (22.8-39.4)
[2017-07-05 06:21] LABS: ALBUMIN 2.7 g/dL (3.4-5.0); ALKALINE PHOSPHATASE 73 U/L (46-116); ALT (SGPT) 17 U/L (10-68); CALC OSMOLALITY 278 mosm/kg (275-300); CALCIUM 8.3 mg/dL (8.5-10.1); CARBON DIOXIDE 25.8 mmol/L (21.0-32.0); CHLORIDE - SERUM 107 mmol/L (98-107); CREATININE - SERUM 0.7 mg/dL (0.6-1.3); GLUCOSE 86 mg/dL (74-106); POTASSIUM - SERUM 3.9 mmol/L (3.5-5.1); PROTEIN - SERUM 5.8 g/dL (6.4-8.2); SODIUM 141 mmol/L (136-145); UREA NITROGEN 11 mg/dL (7-18); eGFR NON AFRICAN AMERICAN 87 mL/min (90-120)
[2017-07-05 10:15] VITALS: BP 130/70
[2017-07-05 12:31] VITALS: BP 140/71
[2017-07-05 13:27] VITALS: BMI 19.0
[2017-07-05 16:26] VITALS: Ht 149.9 cm; Wt 42.5 kg
[2017-07-05 18:21] VITALS: BP 128/65
[2017-07-05 20:00] LABS: COLOR YELLOW (YELLOW)
[2017-07-05 20:01] LABS: APPEARANCE CLEAR (CLEAR); BILIRUBIN NEGATIVE (NEGATIVE); GLUCOSE NEGATIVE (NEGATIVE); KETONE NEGATIVE (NEGATIVE); NITRITE NEGATIVE (NEGATIVE); PROTEIN NEGATIVE (NEGATIVE); SPECIFIC GRAVITY 1.025 (1.005-1.020); UROBILINOGEN NORMAL (NORMAL)
[2017-07-05 20:54] VITALS: BP 167/76
[2017-07-06] VITALS (17 sets, daily range): BP systolic 128–154; BP diastolic 65–77
[2017-07-06 06:11] LABS: BASOPHILS 0.3 % (0-2); EOSINOPHILS 0.5 % (0-7); HEMATOCRIT 44.6 % (36.0-48.0); HEMOGLOBIN 14.8 g/dL (12-16); IMMATURE GRANULOCYTES 0.2 % (0-5); LYMPHOCYTES 21.2 % (15-50); MCH 32.7 pg (26.0-34.0); MCHC 33.2 g/dL (31.0-37.0); MCV 98.5 fL (80.0-100.0); MEAN PLATELET VOLUME 9.4 fL (7.4-10.4); MONOCYTES 1.2 % (2-11); NEUTROPHILS 76.6 % (40-80); PLATELET COUNT 383 10x3/uL (130-400); RBC 4.53 10x6/uL (4.00-5.40); RDW 15.7 % (11.5-14.5); WBC 5.8 10x3/uL (4.8-10.8)
[2017-07-06 06:25] LABS: CALC OSMOLALITY 277 mosm/kg (275-300); CALCIUM 8.7 mg/dL (8.5-10.1); CHLORIDE - SERUM 103 mmol/L (98-107); CREATININE - SERUM 0.7 mg/dL (0.6-1.3); GLUCOSE 118 mg/dL (74-106); POTASSIUM - SERUM 4.2 mmol/L (3.5-5.1); SODIUM 139 mmol/L (136-145); UREA NITROGEN 10 mg/dL (7-18); eGFR NON AFRICAN AMERICAN 87 mL/min (90-120)
[2017-07-06 06:28] LABS: INR 0.93 (0.85-1.17); PROTIME 12.1 SECONDS (11.6-15.0)
[2017-07-06 06:29] LABS: APTT 28.8 SECONDS (22.8-39.4)
[2017-07-06 17:09] LABS: BASOPHILS 0 % (0-2); EOSINOPHILS 0 % (0-7); HEMATOCRIT 40.3 % (36.0-48.0); HEMOGLOBIN 13.4 g/dL (12-16); IMMATURE GRANULOCYTES 0.2 % (0-5); LYMPHOCYTES 22.7 % (15-50); MCH 32.4 pg (26.0-34.0); MCHC 33.3 g/dL (31.0-37.0); MCV 97.6 fL (80.0-100.0); MEAN PLATELET VOLUME 9.5 fL (7.4-10.4); MONOCYTES 0.9 % (2-11); NEUTROPHILS 76.2 % (40-80); PLATELET COUNT 306 10x3/uL (130-400); RBC 4.13 10x6/uL (4.00-5.40); RDW 15.4 % (11.5-14.5); WBC 5.4 10x3/uL (4.8-10.8)
[2017-07-06 19:28] LABS: INR 1.11 (0.85-1.17); PROTIME 13.9 SECONDS (11.6-15.0)
[2017-07-06 19:38] LABS: APTT 155.5 SECONDS (22.8-39.4)
[2017-07-06 21:13] LABS: BASOPHILS 0.1 % (0-2); EOSINOPHILS 0 % (0-7); HEMATOCRIT 38.1 % (36.0-48.0); HEMOGLOBIN 12.6 g/dL (12-16); IMMATURE GRANULOCYTES 0.2 % (0-5); LYMPHOCYTES 18.4 % (15-50); MCH 32.3 pg (26.0-34.0); MCHC 33.1 g/dL (31.0-37.0); MCV 97.7 fL (80.0-100.0); MONOCYTES 3.9 % (2-11); NEUTROPHILS 77.4 % (40-80); PLATELET COUNT 249 10x3/uL (130-400); RDW 15.5 % (11.5-14.5)
[2017-07-06 21:16] LABS: WBC 9.2 10x3/uL (4.8-10.8)
[2017-07-06 21:21] LABS: INR 1.25 (0.85-1.17); PROTIME 15.2 SECONDS (11.6-15.0)
[2017-07-06 21:24] LABS: APTT 131.2 SECONDS (22.8-39.4)
[2017-07-07] VITALS (22 sets, daily range): BP systolic 92–171; BP diastolic 48–80
[2017-07-07 03:44] LABS: BASOPHILS 0.1 % (0-2); EOSINOPHILS 0 % (0-7); HEMATOCRIT 36.2 % (36.0-48.0); IMMATURE GRANULOCYTES 0.3 % (0-5); LYMPHOCYTES 26.5 % (15-50); MCH 32.3 pg (26.0-34.0); MCHC 33.1 g/dL (31.0-37.0); MCV 97.6 fL (80.0-100.0); MEAN PLATELET VOLUME 9.1 fL (7.4-10.4); MONOCYTES 6.8 % (2-11); NEUTROPHILS 66.3 % (40-80); PLATELET COUNT 240 10x3/uL (130-400); RBC 3.71 10x6/uL (4.00-5.40); RDW 15.4 % (11.5-14.5)
[2017-07-07 03:45] LABS: WBC 11.8 10x3/uL (4.8-10.8)
[2017-07-07 04:26] LABS: INR 1.25 (0.85-1.17); PROTIME 15.3 SECONDS (11.6-15.0)
[2017-07-07 09:41] LABS: BASOPHILS 0.1 % (0-2); EOSINOPHILS 0.1 % (0-7); HEMATOCRIT 38.6 % (36.0-48.0); HEMOGLOBIN 12.7 g/dL (12-16); IMMATURE GRANULOCYTES 0.3 % (0-5); LYMPHOCYTES 25.7 % (15-50); MCH 32.3 pg (26.0-34.0); MCHC 32.9 g/dL (31.0-37.0); MCV 98.2 fL (80.0-100.0); MEAN PLATELET VOLUME 8.8 fL (7.4-10.4); MONOCYTES 6.9 % (2-11); NEUTROPHILS 66.9 % (40-80); PLATELET COUNT 193 10x3/uL (130-400); RBC 3.93 10x6/uL (4.00-5.40); RDW 15.7 % (11.5-14.5); WBC 11.5 10x3/uL (4.8-10.8)
[2017-07-07 09:45] LABS: INR 1.37 (0.85-1.17); PROTIME 16.4 SECONDS (11.6-15.0)
[2017-07-07 09:56] LABS: APTT 81.7 SECONDS (22.8-39.4)
[2017-07-07 14:38] LABS: CALC OSMOLALITY 283 mosm/kg (275-300); CARBON DIOXIDE 25.1 mmol/L (21.0-32.0); CHLORIDE - SERUM 108 mmol/L (98-107); CREATININE - SERUM 0.6 mg/dL (0.6-1.3); GLUCOSE 96 mg/dL (74-106); POTASSIUM - SERUM 3.9 mmol/L (3.5-5.1); SODIUM 142 mmol/L (136-145); eGFR NON AFRICAN AMERICAN > 90 mL/min (90-120)
[2017-07-07 14:43] LABS: UREA NITROGEN 16 mg/dL (7-18)
[2017-07-07 16:19] LABS: HEMATOCRIT 33.7 % (36.0-48.0)
[2017-07-07 23:04] LABS: BASOPHILS 0 % (0-2); EOSINOPHILS 0 % (0-7); HEMATOCRIT 39.1 % (36.0-48.0); IMMATURE GRANULOCYTES 0.3 % (0-5); LYMPHOCYTES 10.5 % (15-50); MCH 32.5 pg (26.0-34.0); MEAN PLATELET VOLUME 9.4 fL (7.4-10.4); MONOCYTES 3.8 % (2-11); NEUTROPHILS 85.4 % (40-80); RBC 4.09 10x6/uL (4.00-5.40); RDW 15.9 % (11.5-14.5); WBC 10.3 10x3/uL (4.8-10.8)
[2017-07-07 23:07] LABS: HEMOGLOBIN 13.3 g/dL (12-16); MCV 95.6 fL (80.0-100.0); PLATELET COUNT 146 10x3/uL (130-400)
[2017-07-07 23:21] LABS: INR 1.15 (0.85-1.17); PROTIME 14.3 SECONDS (11.6-15.0)
[2017-07-07 23:28] LABS: APTT 28.5 SECONDS (22.8-39.4)
[2017-07-08] VITALS (22 sets, daily range): BP systolic 116–166; BP diastolic 40–81
[2017-07-08 02:14] LABS: BASOPHILS 0 % (0-2); EOSINOPHILS 0 % (0-7); HEMATOCRIT 38.2 % (36.0-48.0); HEMOGLOBIN 13.2 g/dL (12-16); IMMATURE GRANULOCYTES 0.2 % (0-5); LYMPHOCYTES 16.2 % (15-50); MCH 32.8 pg (26.0-34.0); MCHC 34.6 g/dL (31.0-37.0); MONOCYTES 6.8 % (2-11); NEUTROPHILS 76.8 % (40-80); PLATELET COUNT 128 10x3/uL (130-400); RBC 4.02 10x6/uL (4.00-5.40); RDW 16.5 % (11.5-14.5); WBC 10.2 10x3/uL (4.8-10.8)
[2017-07-08 02:23] LABS: INR 1.13 (0.85-1.17); PROTIME 14.1 SECONDS (11.6-15.0)
[2017-07-08 02:24] LABS: APTT 24.8 SECONDS (22.8-39.4)
[2017-07-08 02:28] LABS: CALC OSMOLALITY 284 mosm/kg (275-300); CALCIUM 8.1 mg/dL (8.5-10.1); CHLORIDE - SERUM 108 mmol/L (98-107); CREATININE - SERUM 0.7 mg/dL (0.6-1.3); GLUCOSE 119 mg/dL (74-106); POTASSIUM - SERUM 4.2 mmol/L (3.5-5.1); SODIUM 142 mmol/L (136-145); UREA NITROGEN 16 mg/dL (7-18); eGFR NON AFRICAN AMERICAN 87 mL/min (90-120)
[2017-07-08 09:10] LABS: BASOPHILS 0.1 % (0-2); EOSINOPHILS 0 % (0-7); HEMATOCRIT 38.7 % (36.0-48.0); HEMOGLOBIN 13.2 g/dL (12-16); IMMATURE GRANULOCYTES 0.2 % (0-5); LYMPHOCYTES 18.4 % (15-50); MCH 32.5 pg (26.0-34.0); MCHC 34.1 g/dL (31.0-37.0); MCV 95.3 fL (80.0-100.0); MONOCYTES 8.5 % (2-11); NEUTROPHILS 72.8 % (40-80); PLATELET COUNT 120 10x3/uL (130-400); RBC 4.06 10x6/uL (4.00-5.40); RDW 16.9 % (11.5-14.5)
[2017-07-08 09:11] LABS: WBC 13.7 10x3/uL (4.8-10.8)
[2017-07-08 10:14] LABS: INR 1.13 (0.85-1.17); PROTIME 14.1 SECONDS (11.6-15.0)
[2017-07-08 10:23] LABS: APTT 26.4 SECONDS (22.8-39.4)
[2017-07-09] VITALS (22 sets, daily range): BP systolic 105–166; BP diastolic 51–79
[2017-07-09 06:33] LABS: CALCIUM 8.3 mg/dL (8.5-10.1); CARBON DIOXIDE 29.6 mmol/L (21.0-32.0); CHLORIDE - SERUM 104 mmol/L (98-107); GLUCOSE 79 mg/dL (74-106); SODIUM 141 mmol/L (136-145)
[2017-07-09 06:36] LABS: CALC OSMOLALITY 277 mosm/kg (275-300); CREATININE - SERUM 0.5 mg/dL (0.6-1.3); POTASSIUM - SERUM 2.9 mmol/L (3.5-5.1); UREA NITROGEN 7 mg/dL (7-18); eGFR NON AFRICAN AMERICAN > 90 mL/min (90-120)
[2017-07-10] VITALS (12 sets, daily range): BP systolic 108–158; BP diastolic 58–74
[2017-07-10 04:42] LABS: HEMATOCRIT 33.9 % (36.0-48.0); HEMOGLOBIN 11.4 g/dL (12-16); MCH 31.9 pg (26.0-34.0); MCHC 33.6 g/dL (31.0-37.0); MEAN PLATELET VOLUME 10.1 fL (7.4-10.4); RBC 3.57 10x6/uL (4.00-5.40); RDW 15.8 % (11.5-14.5)
[2017-07-10 04:48] LABS: WBC 9.1 10x3/uL (4.8-10.8)
[2017-07-10 05:05] LABS: CALCIUM 8.5 mg/dL (8.5-10.1); CARBON DIOXIDE 31.4 mmol/L (21.0-32.0); GLUCOSE 106 mg/dL (74-106); eGFR NON AFRICAN AMERICAN 75 mL/min (90-120)
[2017-07-10 05:10] LABS: CREATININE - SERUM 0.8 mg/dL (0.6-1.3); UREA NITROGEN 11 mg/dL (7-18)
[2017-07-10 05:19] LABS: CALC OSMOLALITY 283 mosm/kg (275-300); CHLORIDE - SERUM 106 mmol/L (98-107); POTASSIUM - SERUM 3.2 mmol/L (3.5-5.1); SODIUM 143 mmol/L (136-145)
[2017-07-10] MEDS ORDERED: PLAVIX75 MG PO (14:43)
[2017-07-10] MEDS ORDERED: ELIQUIS2.5 MG PO (14:43)
[2017-07-10] MEDS ORDERED: ASPIRIN81 MG PO (14:43)
[2017-07-10] MEDS ORDERED: HYDROCODONE-APA1 TAB PO (14:44)
[2017-07-10] MEDS ORDERED: K-TAB10 MEQ PO (14:45)
== END 2017-07-10 16:20 | DRG 253 ==
LOC: D.M2 16:23 → D.CVICU 16:23 → D.M2 16:23 → D.CVICU 07-06 15:22
PROVIDERS: General Practice; Internal Medicine Cardiovascular Disease; Radiology Vascular & Interventional Radiology
PROC: 3E05317 Introduction of Other Thrombolytic into Peripheral Artery, Percutaneous Approach (ICD-10-PCS; principal; 2017-07-06 13:31)
PROC: 047L3ZZ Dilation of Left Femoral Artery, Percutaneous Approach (ICD-10-PCS; 2017-07-07)
DX: I70.222 Atherosclerosis of native arteries of extremities with rest pain, left leg (principal); T82.868A Thrombosis due to vascular prosthetic devices, implants and grafts, initial encounter; G72.81 Critical illness myopathy; D62 Acute posthemorrhagic anemia; I70.92 Chronic total occlusion of artery of the extremities; I99.8 Other disorder of circulatory system; I10 Essential (primary) hypertension; I25.10 Atherosclerotic heart disease of native coronary artery without angina pectoris; K21.9 Gastro-esophageal reflux disease without esophagitis; Z87.891 Personal history of nicotine dependence; M79.605 Pain in left leg

== ENCOUNTER 2017-07-10 16:59 | Inpatient (IN) | payer MEDICARE, OTHER ==
[~2017-07-10] VITALS: Ht 149.9 cm; Wt 41.7 kg
[~2017-07-10 16:59] MED LIST changes: +ASPIRIN81 MG PO; +ELIQUIS2.5 MG PO; +HYDROCODONE-APA1 TAB PO; +K-TAB10 MEQ PO; +PLAVIX75 MG PO
[2017-07-10 17:02] VITALS: BP 146/77; BMI 18.6
[2017-07-10 19:54] VITALS: BP 146/77
[2017-07-11 06:20] LABS: HEMATOCRIT 34.5 % (36.0-48.0); HEMOGLOBIN 11.3 g/dL (12-16); MCH 31.7 pg (26.0-34.0); MCHC 32.8 g/dL (31.0-37.0); MCV 96.6 fL (80.0-100.0); MEAN PLATELET VOLUME 10.1 fL (7.4-10.4); RBC 3.57 10x6/uL (4.00-5.40); RDW 15.2 % (11.5-14.5)
[2017-07-11 06:28] LABS: WBC 11.9 10x3/uL (4.8-10.8)
[2017-07-11 06:49] LABS: CALC OSMOLALITY 284 mosm/kg (275-300); CALCIUM 8.4 mg/dL (8.5-10.1); CHLORIDE - SERUM 105 mmol/L (98-107); CREATININE - SERUM 0.6 mg/dL (0.6-1.3); GLUCOSE 110 mg/dL (74-106); SODIUM 143 mmol/L (136-145); UREA NITROGEN 11 mg/dL (7-18); eGFR NON AFRICAN AMERICAN > 90 mL/min (90-120)
[2017-07-11 06:50] LABS: POTASSIUM - SERUM 3.9 mmol/L (3.5-5.1)
[2017-07-11 08:00] VITALS: BP 130/59
[2017-07-11 14:08] VITALS: Ht 149.9 cm; Wt 41.7 kg
[2017-07-11 19:48] VITALS: BP 129/61
[2017-07-12 08:00] VITALS: BP 137/65
[2017-07-12] MEDS ORDERED: HYDROCODONE-APA1 TAB PO (08:39)
== END 2017-07-12 17:20 | disposition home or self-care (01) | DRG 92 ==
LOC: D.REHAB 16:59
PROVIDERS: Emergency Medicine; Internal Medicine Cardiovascular Disease
DX: G72.81 Critical illness myopathy (principal); D62 Acute posthemorrhagic anemia; I70.222 Atherosclerosis of native arteries of extremities with rest pain, left leg; I99.8 Other disorder of circulatory system; I10 Essential (primary) hypertension; I25.10 Atherosclerotic heart disease of native coronary artery without angina pectoris; F17.200 Nicotine dependence, unspecified, uncomplicated; R53.81 Other malaise

== ENCOUNTER 2017-08-07 23:43 | Emergency (ER) | payer MEDICARE, OTHER ==
[2017-07-11 14:08] VITALS: BMI 18.5
== END 2017-08-08 02:51 | disposition home or self-care (01) ==
LOC: D.ER 23:43
DX: M79.662 Pain in left lower leg (principal); L03.032 Cellulitis of left toe; G89.29 Other chronic pain; F17.200 Nicotine dependence, unspecified, uncomplicated

== ENCOUNTER 2017-08-13 12:50 | Emergency (ER) | payer MEDICARE, OTHER ==
[2017-07-11 14:08] VITALS: BMI 18.5
== END 2017-08-13 16:15 | disposition home or self-care (01) ==
LOC: D.ER 12:50
DX: L03.032 Cellulitis of left toe (principal); F17.200 Nicotine dependence, unspecified, uncomplicated

== ENCOUNTER 2017-08-15 15:22 | Emergency (ER) | payer MEDICARE, OTHER ==
[2017-07-11 14:08] VITALS: BMI 18.5
[2017-08-15 17:01] LABS: BASOPHILS 0.3 % (0-2); EOSINOPHILS 4.1 % (0-7); HEMOGLOBIN 12.2 g/dL (12-16); IMMATURE GRANULOCYTES 0.5 % (0-5); LYMPHOCYTES 30.1 % (15-50); MCH 32.9 pg (26.0-34.0); MCV 99.7 fL (80.0-100.0); MEAN PLATELET VOLUME 8.8 fL (7.4-10.4); MONOCYTES 4.6 % (2-11); NEUTROPHILS 60.4 % (40-80); PLATELET COUNT 366 10x3/uL (130-400); RBC 3.71 10x6/uL (4.00-5.40); RDW 16.3 % (11.5-14.5); WBC 11.2 10x3/uL (4.8-10.8)
[2017-08-15 17:14] LABS: INR 0.92 (0.85-1.17)
[2017-08-15 17:30] LABS: ALBUMIN 3.4 g/dL (3.4-5.0); ALKALINE PHOSPHATASE 84 U/L (46-116); ALT (SGPT) 16 U/L (10-68); CALC OSMOLALITY 288 mosm/kg (275-300); CALCIUM 9.5 mg/dL (8.5-10.1); CARBON DIOXIDE 29.9 mmol/L (21.0-32.0); CHLORIDE - SERUM 105 mmol/L (98-107); CREATINE KINASE 50 UL (21-215); CREATININE - SERUM 0.6 mg/dL (0.6-1.3); GLUCOSE 124 mg/dL (74-106); POTASSIUM - SERUM 4.1 mmol/L (3.5-5.1); PROTEIN - SERUM 6.4 g/dL (6.4-8.2); SODIUM 144 mmol/L (136-145); UREA NITROGEN 15 mg/dL (7-18); URIC ACID 3.3 mg/dL (2.6-7.2); eGFR NON AFRICAN AMERICAN > 90 mL/min (90-120)
[2017-08-15 18:17] LABS: PRO BNP 173 pg/mL (0-125)
[2017-08-15 18:22] LABS: TROPONIN-I 0.175 ng/mL (0.000-0.060)
== END 2017-08-15 18:45 | disposition home or self-care (01) ==
LOC: D.ER 15:22
PROVIDERS: Nurse Practitioner Family
DX: M79.675 Pain in left toe(s) (principal); I25.10 Atherosclerotic heart disease of native coronary artery without angina pectoris; J44.9 Chronic obstructive pulmonary disease, unspecified; K21.9 Gastro-esophageal reflux disease without esophagitis

== ENCOUNTER 2018-08-03 11:47 | Emergency (ER) | payer MEDICARE, OTHER ==
[~2018-08-03] VITALS: Ht 149.9 cm; Wt 45.5 kg
[2018-08-03 11:49] VITALS: Ht 149.9 cm; Wt 45.5 kg
[2018-08-03 13:13] LABS: ALBUMIN 3.7 g/dL (3.4-5.0); ALKALINE PHOSPHATASE 137 U/L (46-116); ALT (SGPT) 30 U/L (10-68); BILIRUBIN - TOTAL 0.39 mg/dL (0.2-1.3); CALC OSMOLALITY 278 mosm/kg (275-300); CARBON DIOXIDE 24.5 mmol/L (21.0-32.0); CHLORIDE - SERUM 104 mmol/L (98-107); CREATININE - SERUM 0.7 mg/dL (0.6-1.3); GLUCOSE 105 mg/dL (74-106); POTASSIUM - SERUM 3.4 mmol/L (3.5-5.1); PROTEIN - SERUM 7.3 g/dL (6.4-8.2); SODIUM 139 mmol/L (136-145); UREA NITROGEN 14 mg/dL (7-18); eGFR NON AFRICAN AMERICAN 87 mL/min (90-120)
[2018-08-03] MEDS ORDERED: PLAVIX75 MG PO (17:07)
[2018-08-03] MEDS ORDERED: HYDROCODON-ACE1 EAC7 PO (18:04)
[2018-08-03 18:17] VITALS: BP 128/72
== END 2018-08-03 18:17 | disposition home or self-care (01) ==
LOC: D.ER 11:47
PROVIDERS: Emergency Medicine
DX: I73.9 Peripheral vascular disease, unspecified (principal); S22.42XS Multiple fractures of ribs, left side, sequela; X58.XXXA Exposure to other specified factors, initial encounter